=== PATIENT | male | born 1955 | race Two or more races ===

== ENCOUNTER 2019-07-08 05:40 | Day surgery (SDC) | payer MEDICAID ==
[~2019-07-08] VITALS: Ht 170.2 cm; Wt 103.6 kg
[~2019-07-08 05:40] MED LIST: SODIUM CHLORIDE 0.9% 1,000 ML IV ONE; SODIUM CHLORIDE 0.9% 1,000 ML ONE
[2019-07-08] MEDS ORDERED: BICA50TA7 PO (07:01)
[2019-07-08] MEDS ORDERED: ATOR40TA71 PO (07:01)
[2019-07-08] MEDS ORDERED: ALBU8HFA IH (07:01)
[2019-07-08] MEDS ORDERED: MONT10TA24 PO (07:01)
[2019-07-08] MEDS ORDERED: METF-960 PO (07:01)
[2019-07-08] MEDS ORDERED: FLUT16H NASAL (07:01)
[2019-07-08] MEDS ORDERED: LISI10TA7 PO (07:01)
[2019-07-08] MEDS ORDERED: BECL10.62 IH (07:01)
[2019-07-08] MEDS ORDERED: TAMS-13 PO (07:01)
[2019-07-08] MEDS ORDERED: MULT1CAP32 PO (07:01)
[2019-07-08] MEDS ORDERED: OMEP20 PO (07:01)
[2019-07-08 07:02] LABS: GLUCOMETER DEV NAME(LOC) SDS.; GLUCOSE,POINT OF CARE 158 MG/DL (70-110)
[2019-07-08] MEDS ORDERED: FentaNYL CITRATE-PF 100 MCG/2 ML VIAL ONE (08:16)
[2019-07-08] MEDS ORDERED: MIDAZOLAM HCL 2 MG/2 ML VIAL ONE (08:16)
[2019-07-08] MEDS ORDERED: MethylPREDNISolone SOD SUCC 125 MG/2 ML VIAL IVP ONE (08:45)
[2019-07-08] MEDS ORDERED: MethylPREDNISolone SOD SUCC 125 MG/2 ML VIAL ONE (08:54)
[2019-07-08] MEDS ORDERED: ALBUTEROL SULFATE 2.5 MG/0.5 ML NEB SOLUTION NEB ONE (15:27)
[2019-07-08] MEDS ORDERED: LIDOCAINE 4% 50 ML SOLUTION ONE (15:27)
[2019-07-08] MEDS ORDERED: BENZOCAINE 20% 50 MCG/SPRAY 57 GM ONE (15:27)
[2019-07-08] MEDS ORDERED: EPINEPHrine 1:1,000 [1 MG/ML] AMP ONE (15:27)
[2019-07-08] MEDS ORDERED: LIDOCAINE 2% 30 ML JELLY ONE (15:27)
[2019-07-08] MEDS ORDERED: OXYGEN THERAPY IH SCH (20:00)
== END 2019-07-08 10:15 | disposition home or self-care (01) ==
LOC: SURGERY 05:40
PROVIDERS: ATTEND Internal Medicine Critical Care Medicine
DX: R05 Cough (principal); R91.1 Solitary pulmonary nodule; J34.89 Other specified disorders of nose and nasal sinuses; J98.8 Other specified respiratory disorders; J38.4 Edema of larynx; B37.0 Candidal stomatitis; J44.9 Chronic obstructive pulmonary disease, unspecified; E78.00 Pure hypercholesterolemia, unspecified; E11.9 Type 2 diabetes mellitus without complications; I10 Essential (primary) hypertension; Z79.899 Other long term (current) drug therapy; R19.09 Other intra-abdominal and pelvic swelling, mass and lump
CPT/HCPCS: 31623; 31624; 71045; 82962; 87015; 87070; 87101; 87205; 87206; 87220; 88108; 88184; 88185; 88312; J0171; J2250; J2930; J3010; J7030